=== PATIENT | female | born 1990 | race Caucasian/White ===

== ENCOUNTER → 2017-12-15 01:02 | Outpatient (CLI) | payer MEDICAID, SELFPAY ==
--- NOTE | 2017-12-15 09:45 | DI.REPORT_ITS ---
SYMPTOMS/DIAGNOSIS: DATING, FIRST TRIMESTER , Z34.91 OBSTETRICAL ULTRASOUND: Routine examination. There is a single living intrauterine gestation. Estimated sonographic age is 8 weeks 4 days. The heart rate is 168 bpm. The yolk sac was identified. The ovaries are grossly unremarkable. IMPRESSION: Single living intrauterine gestation. Estimated sonographic age is 8 weeks 4 days. Many abnormalities cannot be diagnosed. A normal exam does not exclude a congenital anomaly. Radiology No. [id number] LMP: 10/24/17 Exam Date: 12/15/17 [facility] wks days on EDC ([facility]) Confirmed: HISTORY: dating, hx of miscarriage with D + C ---- PREDICTED GESTATIONAL AGE NUMBER 7+3 weeks with a range of 6+3 weeks to 8+3 weeks. 1 Determined by___1STUS___LMP___HISTORY Info. pertaining to fetus # PLACENTA PRESENTATION Grade Cephalic___ Anterior___Posterior___ Breech____ Right Left Transverse(head right___ Fundal___Low-lying___Previa___ Transverse(head left___ Varying BIOMETRY AMNIOTIC FLUID BPD: mm weeks Normal HC: mm weeks Oligo Polyhydramnios AC: mm weeks FL: mm weeks AMNIOTIC FLUID INDEX >26 WK CRL: 19.6 mm 8+4 weeks Cisterna Magna: mm CI: RUQ: LUQ Cerebellum: cm EFW: grams Percentile RLQ: LLQ Total: cms Composite AGE= 8+4 wks EDC by US 07/23/18 BIOPHYSICAL PROFILE ANATOMY IDENTIFIED SCORE 0/2 Heart: 4-Chamber___Rate: 168 BPM LVOT: RVOT: Amniotic Fluid(>2cms)____ Stomach: Kidneys: Respirations (>30 secs) Bladder: Post. Fossa: Body Flex/Extension 3 vessel cord: Ventricles: cord insertion: Lips:____ Extremity Flex/Extension spinal morphology: Nose: Total Score= Palate: NS=not seen Comments: Single IUP with + FHR/ movement noted.
== END ==
PROVIDERS: PCP Emergency Medicine; Visit Provider Nurse Practitioner Women's Health
DX: Z34.91 Encounter for supervision of normal pregnancy, unspecified, first trimester (principal)
CPT/HCPCS: 76817

== ENCOUNTER → 2017-12-17 10:16 | Outpatient (CLI) | payer MEDICAID, SELFPAY ==
[2017-12-17 10:48] LABS: Abs Immature Grans 0.04 k/cumm (0.0-0.09); Absolute Basophil Count 0.02 k/cumm (0.0-0.2); Absolute Eosinophil Count 0.09 k/cumm (0.0-0.7); Absolute Lymphocyte Count 1.89 k/cumm (1.2-3.4); Absolute Monocyte Count 0.75 k/cumm (0.11-0.7); Absolute Neutrophil Count 8.18 k/cumm (1.2-6.7); Basophils % 0.2; Eosinophils % 0.8; HCT 42.5 % (36.0-46.0); HGB 14.4 g/dL (12.0-15.5); Immature Grans % 0.4; Lymphocytes % 17.2; Mean Corp. HGB Concentration 33.9 g/dL (32.0-36.0); Mean Corpuscular Hemoglobin 30.3 pg (27.0-33.0); Mean Corpuscular Volume 89.5 fL (80-95); Mean Platelet Volume 10.6 fL (8.0-11.0); Monocytes % 6.8; Neutrophils % 74.6; Platelet Count 336 x1000/uL (130-400); RBC 4.75 m/cumm (4.00-5.20); RBC Distribution Width 13.2 % (11.7-14.6); White Blood Cell Count 10.97 k/cumm (4.4-10.8)
[2017-12-17 12:05] LABS: TSH (W/Ref FT4) 1.26 uIU/mL (0.358-3.74)
[2017-12-18 11:05] LABS: Hepatitis B Surface Ag Negative (NEGAT)
[2017-12-18 11:26] LABS: HIV-1/2 Ag & Ab Screen Negative (NEGAT)
[2017-12-18 11:47] LABS: Hepatitis C Ab w Rflx HCV PCR Negative (NEGAT)
[2017-12-18 13:12] LABS: Syphilis Serology (RPR) Negative (Negative)
[2017-12-18 13:17] LABS: Rubella IgG Ab (UVM) Positive
== END ==
PROVIDERS: PCP Emergency Medicine; Visit Provider Midwife
DX: Z34.91 Encounter for supervision of normal pregnancy, unspecified, first trimester (principal)
CPT/HCPCS: 36415; 80055; 80307; 86850; 86900; 86901; 84443; 87086

== ENCOUNTER → 2017-12-17 12:04 | Outpatient (REF) | payer MEDICAID, SELFPAY ==
[2017-12-17 15:01] LABS: *AMPHETAMINES SCREEN URINE Negative (Negative); *BARBITURATES SCREEN URINE Negative (Negative); *BENZODIAZEPINES SCREEN URINE Negative (Negative); Cannabinoids THC POSITIVE (Negative); Cocaine Screen,Urine Negative (Negative); METHADONE URINE SCREEN Negative (Negative); OPIATES URINE SCREEN Negative (Negative)
[2017-12-17 15:11] LABS: Tricyclic Antidepressants Negative (Negative)
[2017-12-23 11:31] LABS: Buprenorphine Negative; Norbuprenorphine Negative
== END ==
LOC: LBN 12:04
PROVIDERS: PCP Emergency Medicine; Visit Provider Midwife
DX: Z34.91 Encounter for supervision of normal pregnancy, unspecified, first trimester (principal)
CPT/HCPCS: 80307; 87086

== ENCOUNTER 2018-02-19 00:27 | Outpatient (CLI) | payer MEDICAID, SELFPAY ==
--- NOTE | 2018-02-19 14:06 | DI.US_ITS ---
Many abnormalities cannot be diagnosed. A normal exam does not exclude a congenital anomaly. Radiology No. LMP: Exam Date: 02/19/18 [facility] 8 wks 4 days on 12/15/17 EDC ([facility]) Confirmed: HISTORY: SURVEY, Z34.9 ---- PREDICTED GESTATIONAL AGE NUMBER 18 weeks with a range of 17 week to 19 weeks. 1 Determined by__X_1STUS___LMP___HISTORY Info. pertaining to fetus # PLACENTA PRESENTATION Grade 0-1 Cephalic___ Anterior_X__Posterior___ Breech____ Right Left Transverse(head right___ Fundal___Low-lying___Previa___ Transverse(head left___ Varying___X___ BIOMETRY AMNIOTIC FLUID BPD: 43 mm 18.6 weeks Normal HC: 157 mm 18.4 weeks AC: 126 mm 18.2 weeks FL: 26 mm 18 weeks AMNIOTIC FLUID INDEX >26 WK CRL: mm weeks Cisterna Magna: 4 mm CI: 0.85 RUQ: LUQ Cerebellum: 1.8 cm EFW: 228 grams Percentile RLQ: LLQ Total: cms Composite AGE= 18.3 wks EDC by US___07/20/18 BIOPHYSICAL PROFILE ANATOMY IDENTIFIED SCORE 0/2 Heart: 4-Chamber_X__Rate:BPM___153__ LVOT: X__ RVOT: X___ Amniotic Fluid(>2cms)____ Stomach:_X Kidneys:____X___ Respirations (>30 secs) Bladder: X___ Post. Fossa:___X Body Flex/Extension 3 vessel cord:__X Ventricles: X cord insertion:__X___ Lips:___X_ Extremity Flex/Extension spinal morphology: X___Nose:X Total Score= Palate:____X___ NS=not seen Please see the OB ultrasound worksheet for complete details.
== END 2018-02-19 00:47 ==
PROVIDERS: PCP Emergency Medicine; Visit Provider Advanced Practice Midwife
DX: Z34.92 Encounter for supervision of normal pregnancy, unspecified, second trimester (principal)
CPT/HCPCS: 76805

== ENCOUNTER 2018-04-17 08:38 | Outpatient (CLI) | payer MEDICAID, SELFPAY ==
[2018-04-17 09:20] LABS: HCT 37.5 % (36.0-46.0); HGB 12.5 g/dL (12.0-15.5); Mean Corp. HGB Concentration 33.3 g/dL (32.0-36.0); Mean Corpuscular Hemoglobin 31.2 pg (27.0-33.0); Mean Corpuscular Volume 93.5 fL (80-95); Mean Platelet Volume 9.9 fL (8.0-11.0); Platelet Count 308 x1000/uL (130-400); RBC 4.01 m/cumm (4.00-5.20); RBC Distribution Width 13.6 % (11.7-14.6); White Blood Cell Count 14.12 k/cumm (4.4-10.8)
[2018-04-17 09:27] LABS: Glucose,1 Hr (Glucola) 104 mg/dL (80-140)
== END 2018-04-17 08:58 ==
PROVIDERS: Nurse Practitioner; PCP Emergency Medicine; Visit Provider Advanced Practice Midwife
DX: Z34.91 Encounter for supervision of normal pregnancy, unspecified, first trimester (principal); Z01.84 Encounter for antibody response examination
CPT/HCPCS: 36415; 82950; 85027; 86850

== ENCOUNTER 2018-05-25 08:20 | Observation (INO) | payer MEDICAID, SELFPAY ==
[2018-05-25 08:29] VITALS: BP 123/67; PULSE 103; RESP 16; TEMP 36.7; O2SAT 99
--- NOTE | 2018-05-25 08:46 | W.ED.GENAD ---
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 Patient is approximately 32 weeks along her and this morning woke up with blood noted on a pillow that was between her legs. Patient denies any trauma, recent sex, and denies any pain or feelings of contractions but does state that she feels that her stomach has tightened a couple times. Patient denies any knowledge of placenta previa does state an anterior placenta upon placement. heart tones were obtained and show heart rate of approximately 145. Concern for placenta previa/abruption versus early labor so OB automation analyst was contacted. Spoke with Dr. Jurado will be automation analyst whom stated to have patient come to the center for further evaluation workup and vaginal exam. Patient was agreeable to this plan. HPI General Mode of arrival: ambulatory. Date/Time Provider Initiated Documentation: 05/25/18 08:38. Limitations to Documentation: no limitations. Information obtained by: patient, RN notes reviewed and old records reviewed. History of Present Illness 27 year old F presents to the emergency department with the chief complaint of Vaginal bleeding, described as mild, Quality is described as other (Denies pain), Patient started experiencing this hour(s) (2) and it has been constant. No relieving factors improve symptom(s), Patient notes no other symptoms.. Patient did receive the following treatments prior to arrival, none Related Data Home Medications Medication Instructions Recorded Confirmed PNV [id number]-nokce-3-fish oil 1 ea PO DAILY #90 tab.chew 08/15/17 05/25/18 [ Gummies] cholecalciferol (vitamin D3) 4,000 unit PO DAILY #30 tab-cap 08/25/17 05/25/18 [Vitamin D3] sertraline 100 mg PO DAILY #90 tab-cap 11/24/17 05/25/18 breast pump #1 each 05/15/18 05/15/18 Previous Rx's Medication Instructions Recorded PNV [id number]-fkfnz-lehmn-3-fish oil 1 ea PO DAILY #90 tab.chew 08/15/17 [ Gummies] cholecalciferol (vitamin D3) 4,000 unit PO DAILY #30 tab-cap 08/25/17 [Vitamin D3] sertraline 100 mg PO DAILY #90 tab-cap 11/24/17 breast pump #1 each 05/15/18 Allergies Allergy/AdvReac Type Severity Reaction Status Date / Time No Known Drug Allergies Allergy Unverified 05/25/18 08:32 General Stated Complaint: DELIVERER FOOD FRANCOIS: 2 Review of Systems Constitutional Denies chills and Denies fever(s) Cardiovascular Denies chest pain, Denies syncope and Denies dyspnea Respiratory Denies dyspnea Genitourinary Reports as per HPI and Reports abnormal vaginal bleeding Neurologic Denies syncope [facility] Medical History Constipation during Surgical History Dilation and curettage (08/28/17) Family History Mother Age: 47 Alcohol abuse Essential hypertension Anxiety Father Age: 46 Mental disorder Sister Age: 23 Mental disorder Sister Age: 16 No problems noted. 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) Smoking/Tobacco Use Status: Current-Occasional alcohol intake: never substance use type: does not use special emeterio needs: No seatbelt use: always helmet use: Yes drive intox or ride w/ intox compressed air pile driver operator: No water heater temp set < 120 deg: Yes working smoke detector in home: Yes fire extinguisher in home: Yes carbon monox detector in home: Yes firearms in home: Yes victim of physical abuse: No victim of emotional abuse: Yes victim of sexual abuse: No History History 3 Para 1 Hx # Term Pregnancies 1 Multiple births 0 Hx # Pregnancies 0 Ectopic pregnancies 0 AB induced 0 Hx Number of Living Children 1 AB spontaneous 1 Exam Const General: cooperative, comfortable and no acute distress Orientation: alert, awake and oriented x3 Resp Effort & Inspection: normal respiratory effort and able to speak in complete sentences Cardio Rate: regular rate Rhythm: regular rhythm GI Inspection: other (Patient obviously with appropriate heart tones) Palpation: soft and nontender Course Vital Signs Temperature 36.7 C 05/25/18 08:29 Pulse 103 H 05/25/18 08:29 Respiratory Rate 16 05/25/18 08:29 Blood Pressure 123/67 05/25/18 08:29 Pulse Oximetry 99 05/25/18 08:29 Temperature 36.7 C 05/25/18 08:29 Temperature Source Skin 05/25/18 08:29 Pulse 103 H 05/25/18 08:29 Respiratory Rate 16 05/25/18 08:29 Respiratory Effort Non-Labored 05/25/18 08:29 Blood Pressure 123/67 05/25/18 08:29 Blood Pressure Position Sitting 05/25/18 08:29 Pulse Oximetry 99 05/25/18 08:29 Oxygen Delivery Method Room Air 05/25/18 08:29 Oxygen Flow Rate 0 05/25/18 08:29 Pain Level 0 05/25/18 08:29
--- NOTE | 2018-05-25 08:49 | ED.GENADUL_ITS ---
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 Patient is approximately 32 weeks along her and this morning woke up with blood noted on a pillow that was between her legs. Patient denies any trauma, recent sex, and denies any pain or feelings of contractions but does state that she feels that her stomach has tightened a couple times. Patient denies any knowledge of placenta previa does state an anterior placenta upon placement. heart tones were obtained and show heart rate of approximately 145. Concern for placenta previa/abruption versus early labor so OB implementation specialist payroll was contacted. Spoke with Dr. Jurado will be implementation specialist payroll whom stated to have patient come to the center for further evaluation workup and vaginal exam. Patient was agreeable to this plan. HPI General Mode of arrival: ambulatory . Date/Time Provider Initiated Documentation: 05/25/18 08:38 . Limitations to Documentation: no limitations . Information obtained by: patient, RN notes reviewed and old records reviewed . History of Present Illness 27 year old F presents to the emergency department with the chief complaint of Vaginal bleeding, described as mild, Quality is described as other (Denies pain), Patient started experiencing this hour(s) (2) and it has been constant. No relieving factors improve symptom(s), Patient notes no other symptoms.. Patient did receive the following treatments prior to arrival, none Related Data Home Medications Medication Instructions Recorded Confirmed PNV 512-aggwq-wzkid-3-fish oil 1 ea PO DAILY #90 tab.chew 08/15/17 05/25/18 [ Gummies] cholecalciferol (vitamin D3) 4,000 unit PO DAILY #30 tab-cap 08/25/17 05/25/18 [Vitamin D3] sertraline 100 mg PO DAILY #90 tab-cap 11/24/17 05/25/18 breast pump #1 each 05/15/18 05/15/18 Previous Rx's Medication Instructions Recorded PNV [id number]-kltzr-hqfgw-3-fish oil 1 ea PO DAILY #90 tab.chew 08/15/17 [ Gummies] cholecalciferol (vitamin D3) 4,000 unit PO DAILY #30 tab-cap 08/25/17 [Vitamin D3] sertraline 100 mg PO DAILY #90 tab-cap 11/24/17 breast pump #1 each 05/15/18 Allergies Allergy/AdvReac Type Severity Reaction Status Date / Time No Known Drug Allergies Allergy Unverified 05/25/18 08:32 General Stated Complaint: TIMBER 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) Smoking/Tobacco Use Status: Current-Occasional alcohol intake: never substance use type: does not use special emeterio needs: No seatbelt use: always helmet use: Yes drive intox or ride w/ intox driver education road instructor: No water heater temp set < 120 deg: Yes working smoke detector in home: Yes fire extinguisher in home: Yes carbon monox detector in home: Yes firearms in home: Yes victim of physical abuse: No victim of emotional abuse: Yes victim of sexual abuse: No History History 3 Para 1 Hx # Term Pregnancies 1 Multiple births 0 Hx # Pregnancies 0 Ectopic pregnancies 0 AB induced 0 Hx Number of Living Children 1 AB spontaneous 1 Exam Const General: cooperative, comfortable and no acute distress Orientation: alert, awake and oriented x3 Resp Effort & Inspection: normal respiratory effort and able to speak in complete sentences Cardio Rate: regular rate Rhythm: regular rhythm GI Inspection: other (Patient obviously with appropriate heart tones) Palpation: soft and nontender Course Vital Signs Temperature 36.7 C 05/25/18 08:29 Pulse 103 H 05/25/18 08:29 Respiratory Rate 16 05/25/18 08:29 Blood Pressure 123/67 05/25/18 08:29 Pulse Oximetry 99 05/25/18 08:29 Temperature 36.7 C 05/25/18 08:29 Temperature Source Skin 05/25/18 08:29 Pulse 103 H 05/25/18 08:29 Respiratory Rate 16 05/25/18 08:29 Respiratory Effort Non-Labored 05/25/18 08:29 Blood Pressure 123/67 05/25/18 08:29 Blood Pressure Position Sitting 05/25/18 08:29 Pulse Oximetry 99 05/25/18 08:29 Oxygen Delivery Method Room Air 05/25/18 08:29 Oxygen Flow Rate 0 05/25/18 08:29 Pain Level 0 05/25/18 08:29
--- NOTE | 2018-05-25 11:30 | DI.US_ITS ---
SYMPTOM/DIAGNOSIS: RULE OUT PLACENTAL ABRUPTION OB ULTRASOUND: The exam was performed to evaluate the placenta. The placenta is anterior. At the inferior left side of the placenta there is an area of thickening adjacent to the uterine wall and border of the placenta which could represent hemorrhage related to abruption. The fetus was not evaluated for motion and cardiac activity were noted. Amount of amniotic fluid appears normal. IMPRESSION: Question of a small amount of hemorrhage at the inferior border of the placenta which could indicate abruption. Many abnormalities cannot be diagnosed. A normal exam does not exclude a congenital anomaly. Radiology No. [id number] LMP: Exam Date:05/25/18 [facility] wks days on EDC ([facility]) Confirmed: HISTORY: R/O PLACENTAL ABRUPTION, VAG BLEEDING AT 31+ WEEKS. PREDICTED GESTATIONAL AGE NUMBER weeks with a range of week to weeks. 1 Determined by___1STUS___LMP___HISTORY Info. pertaining to fetus # PLACENTA PRESENTATION Grade I-II Cephalic___ Anterior__XX_Posterior___ Breech____ Right Left Transverse(head right___ Fundal___Low-lying___Previa___ Transverse(head left___ Varying BIOMETRY AMNIOTIC FLUID BPD: mm weeks Normal HC: mm weeks Oligo Polyhydramnios AC: mm weeks FL: mm weeks AMNIOTIC FLUID INDEX >26 WK CRL: mm weeks Cisterna Magna: mm CI: RUQ: LUQ Cerebellum: cm EFW: grams Percentile RLQ: LLQ Total: cms Composite AGE= wks EDC by US BIOPHYSICAL PROFILE ANATOMY IDENTIFIED SCORE 0/2 Heart: 4-Chamber___Rate:BPM LVOT: RVOT: Amniotic Fluid(>2cms)____ Stomach: Kidneys: Respirations (>30 secs) Bladder: Post. Fossa: Body Flex/Extension 3 vessel cord: Ventricles: cord insertion: Lips:____ Extremity Flex/Extension spinal morphology: Nose: Total Score= Palate: NS=not seen
[2018-05-25] MEDS: Lactated Ringers 1,000 ML 150 ML IV (11:37)
[2018-05-25] MEDS: MAGNESIUM SULFATE 20 GM/500 ML BAG IV (11:38)
[2018-05-25] MEDS: Betamet Acet/Betamet Na Ph Inj. 30 MG/5 ML 12 MG IM (11:56)
--- NOTE | 2018-05-25 12:00 | HPE_ITS ---
Assessment and Plan (1) Placental abruption in third trimester: Current visit: Yes Status: Acute 31.4 weeks with suspected placental abruption. An ultrasound did show findings appearing to confirm this. My recommendation to the patient is to proceed with transfer to [facility] to [facility] service. I did speak with Dr. Prema Ruvalcaba who did accept her in transfer. The patient is started on a Magnesium sulfate infusion with a 2 gm bolus for neuroprotection and is administered the first betamethasone. I discussed my concerns with the patient regarding risks to the . All questions were answered. 27 year old @ 31.4 weeks gestation with an JAYANT of 07/23/18 based on an 8 week US presents today with vaginal bleeding. She reports some mild abdominal cramping but is uncertain if she is having contractions. She reports good movement. Her has been uncomplicated to this point. Her obstetrical history is significant for one prior section. Review of Systems Review of Systems All systems reviewed & are unremarkable except as noted in HPI and below PFSH Medical History Constipation during Surgical History Dilation and curettage (08/28/17) Family History Mother Age: 47 Alcohol abuse Essential hypertension Anxiety Father Age: 46 Mental disorder Sister Age: 23 Mental disorder Sister Age: 16 No problems noted. 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) Smoking/Tobacco Use Status: Current-Occasional alcohol intake: never substance use type: does not use special emeterio needs: No seatbelt use: always helmet use: Yes drive intox or ride w/ intox limousine driver: No water heater temp set < 120 deg: Yes working smoke detector in home: Yes fire extinguisher in home: Yes carbon monox detector in home: Yes firearms in home: Yes victim of physical abuse: No victim of emotional abuse: Yes victim of sexual abuse: No History History 3 Para 1 Hx # Term Pregnancies 1 Multiple births 0 Hx # Pregnancies 0 Ectopic pregnancies 0 AB induced 0 Hx Number of Living Children 1 AB spontaneous 1 Meds Home Medications Medication Instructions Recorded Confirmed Type PNV 780-wfsrj-xgjje-3-fish oil 1 ea PO DAILY #90 tab.chew 08/15/17 05/25/18 Rx [ Gummies] cholecalciferol (vitamin D3) 4,000 unit PO DAILY #30 tab-cap 08/25/17 05/25/18 Rx [Vitamin D3] sertraline 100 mg PO DAILY #90 tab-cap 11/24/17 05/25/18 Rx breast pump #1 each 05/15/18 05/15/18 Rx Allergies Allergy/AdvReac Type Severity Reaction Status Date / Time No Known Drug Allergies Allergy Unverified 05/25/18 08:32 Exam GI Other: Abdomen is soft, gravid, nontender. Contractions not palpable. Other: Moderate old blood in the vaginal vault with no active bleeding. Cervix is closed. Results Last Vital Signs Temp 98.1 F 05/25/18 08:29 Pulse 103 H 05/25/18 08:29 Resp 16 05/25/18 08:29 BP 123/67 05/25/18 08:29 Pulse Ox 99 05/25/18 08:29
== END 2018-05-25 13:30 | disposition home or self-care (01) ==
LOC: ER 09:23 → OBS 09:45
PROVIDERS: Admitting Provider Obstetrics & Gynecology; Emergency Provider Nurse Practitioner Family; PCP Emergency Medicine; Visit Provider Obstetrics & Gynecology
DX: O46.8X3 Other antepartum hemorrhage, third trimester (principal); Z3A.31 31 weeks gestation of pregnancy; O34.211 Maternal care for low transverse scar from previous cesarean delivery; O99.333 Smoking (tobacco) complicating pregnancy, third trimester; Z72.0 Tobacco use
CPT/HCPCS: 36415; 76815; 99223; 99285; 99284; G0378; J0702; J3475

== ENCOUNTER 2021-05-17 11:07 | Outpatient (CLI) | payer MEDICAID, SELFPAY ==
--- NOTE | 2021-05-17 11:00 | RT.EKG_ITS ---
APPROVED REPORT Exam: Resting ECG Reason for Exam: Chest discomfort Patient Location: O HR:72 bpm ECG Measurements Heart Rate 72 AXIS OR 134 P 52 QRSd 88 QRS 44 QT 371 T 13 QTc 406 Conclusion Sinus rhythm...normal P axis, V-rate 60- 99 Normal Electrocardiogram
== END 2021-05-17 11:08 | disposition home or self-care (01) ==
LOC: DI.CM 11:07
PROVIDERS: PCP Family Medicine; Visit Provider Nurse Practitioner Family
DX: R07.89 Other chest pain (principal)
CPT/HCPCS: 93010

== ENCOUNTER 2021-05-18 14:08 | Outpatient (REF) | payer MEDICAID, SELFPAY ==
[2021-05-18 18:58] LABS: D-Dimer 157 ng/mlFEU (<500)
== END 2021-05-18 14:09 | disposition home or self-care (01) ==
LOC: LBN 14:08
PROVIDERS: PCP Family Medicine; Visit Provider Nurse Practitioner Family
DX: R07.89 Other chest pain (principal)
CPT/HCPCS: 85379

== ENCOUNTER 2021-07-31 11:14 | Outpatient (REF) | payer MEDICAID, SELFPAY ==
--- NOTE | 2021-07-31 10:30 | PAPFT_PTH ---
PATIENT: Rosa Rodriguez LOC: [facility] U#:[id number] AGE/SX: 30/F ROOM: RE07/31/[address]: KRISTI Kelly : 1990 BED: DIS: 07/31/2021 SPEC #: [id number] RECD: 07/31/21 12:54 STATUS: CORDELL REAndrei #: [id number] HUNG: 07/31/21 10:[address]: Rosa Palmer [facility]PT[facility] Cytology RECD BY: Radha Washington ENTERED: 07/31/21 12:55 SP TYPE: PAPFT SEVERO DR: Hayden Hall, ANUJA Tissues: 1 - CX/ENDOCX FOR PAP SMEARS Procedures: PAP THIN PREP/[facility] Screening Comments: [id number]
== END 2021-07-31 11:15 | disposition home or self-care (01) ==
LOC: LBN 11:14
PROVIDERS: PCP Nurse Practitioner Family; Visit Provider Nurse Practitioner Family
DX: Z12.4 Encounter for screening for malignant neoplasm of cervix (principal)
CPT/HCPCS: 88142

== ENCOUNTER 2022-02-19 12:43 | Emergency (ER) | payer MEDICAID, SELFPAY ==
--- NOTE | 2022-02-19 12:45 | RT.EKG_ITS ---
APPROVED REPORT Exam: Resting ECG Reason for Exam: chest pain Patient Location: E HR:89 bpm ECG Measurements Heart Rate 89 AXIS FL 127 P 55 QRSd 76 QRS 57 QT 349 T 53 QTc 424 Conclusion Sinus rhythm...normal P axis, V-rate 60- 99
[2022-02-19 12:49] VITALS: BP 121/67; PULSE 86; RESP 16; TEMP 36.9; O2SAT 98
[2022-02-19 12:52] VITALS: RESP 16
[2022-02-19 14:40] LABS: Abs Immature Grans 0.01 10^3/uL (0.0-0.06); Absolute Basophil Count 0.02 10^3/uL (0.0-0.2); Absolute Eosinophil Count 0.03 10^3/uL (0.0-0.7); Absolute Monocyte Count 0.77 10^3/uL (0.1-0.8); Absolute Neutrophil Count 2.33 10^3/uL (1.2-6.7); Basophils % 0.4; Eosinophils % 0.6; HCT 47.9 % (36.0-46.0); HGB 15.9 g/dL (11.2-15.7); Immature Grans % 0.2; Lymphocytes % 38.8; MCH 30.5 pg (27.0-33.0); MCHC 33.2 % (32.0-36.0); MCV 92 fL (80-95); MPV 10.6 fL (8.0-11.0); Monocytes % 14.9; Neutrophils % 45.1; Platelet Count 271 10^3/uL (130-400); RBC 5.22 10^6/uL (3.93-5.22); RDW-SD 43.9 fL; WBC 5.16 10^3/uL (4.4-10.8)
[2022-02-19 14:56] LABS: Bilirubin Negative (Negative); Blood Trace-intact (Negative); Clarity Clear (Clear); Glucose Negative (Negative); Ketones Negative (Negative); Leukocyte Esterase Trace (Negative); Nitrite Negative (Negative); Specific Gravity >= 1.030 (1.005-1.025); Urobilinogen 0.2 EU/dL (Up TO 0.2)
[2022-02-19 14:59] LABS: ALT 50 U/L (14-59); AST 31 U/L (15-37); Albumin 4.7 g/dL (3.4-5.0); Alkaline Phosphatase 60 U/L (46-116); Anion Gap 8.3 mmol/L (3-11); BUN 12 mg/dL (7-18); Bilirubin, Total 0.3 mg/dL (0.2-1.0); CO2 26.7 mmol/L (21.0-32.0); CREATININE 0.9 mg/dL (0.55-1.02); Chloride 103 mmol/L (98-107); Glucose 82 mg/dL (74-106); Potassium 4.1 mmol/L (3.5-5.1); Sodium 138 mmol/L (136-145); Troponin I < 50 ng/L (<or=60)
[2022-02-19 15:10] LABS: Bacteria Few HPF (Negative); Epithelial Cells Few HPF (Negative); RBC 0-2 HPF (0-2)
[2022-02-19 15:11] LABS: C & S Indicated? No; Crystals Few Amorphous HPF (Negative); Mucus Moderate (Negative)
--- NOTE | 2022-02-19 15:15 | DI.RAD_ITS ---
Exam(s) XR PORTABLE CHEST AP EXAM: XR PORTABLE CHEST AP CLINICAL HISTORY: chest pain, covid. TECHNIQUE: 2D digital imaging was performed. COMPARISON: No exams were available for comparison FINDINGS: Single AP portable view. Heart size is upper normal. The mediastinum is not widened. Lungs are clear. No infiltrates nor obvious pleural effusions. IMPRESSION: No acute pulmonary findings on this single AP portable view of the chest. DATA REPOSITORY: RADIATION DOSE DELIVERED:
[2022-02-19 15:19] LABS: D-Dimer 441 ng/mlFEU (<500)
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
[2022-02-19 16:47] VITALS: BP 120/60; PULSE 78; RESP 14; O2SAT 98
== END 2022-02-19 16:52 | disposition home or self-care (01) ==
PROVIDERS: Emergency Provider Physician Assistant; PCP Nurse Practitioner Family
DX: R07.89 Other chest pain (principal); Z86.16 Personal history of COVID-19; Z32.02 Encounter for pregnancy test, result negative
CPT/HCPCS: 36415; 80053; 81025; 93005; 99284; 71045; 81003; 81015; 83735; 84484; 85025; 85379; 93010; 99283

== ENCOUNTER 2022-10-16 11:38 | Outpatient (REF) | payer MEDICAID, SELFPAY | END 2022-10-16 11:39 | disposition home or self-care (01) | LOC: LBN 11:38 | PROVIDERS: PCP Nurse Practitioner Family; Visit Provider Nurse Practitioner Family | DX: J02.9 Acute pharyngitis, unspecified (principal) | CPT/HCPCS: 87070 ==

== ENCOUNTER 2022-10-18 09:49 | Emergency (ER) | payer MEDICAID, SELFPAY ==
[2022-10-18 10:02] VITALS: BP 119/68; PULSE 82; RESP 18; TEMP 36.8; O2SAT 100
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
[2022-10-18 11:20] VITALS: BP 124/80; PULSE 85; RESP 18; TEMP 36.8; O2SAT 99
== END 2022-10-18 11:24 | disposition home or self-care (01) ==
PROVIDERS: Emergency Provider Physician Assistant; PCP Nurse Practitioner Family
DX: J03.90 Acute tonsillitis, unspecified (principal)
CPT/HCPCS: 87880; 99283; 87081; 99284

== ENCOUNTER 2024-01-27 03:08 | Outpatient (CLI) | payer MEDICAID, SELFPAY ==
[2024-01-27 14:35] LABS: Hemoglobin A1C 5.1 % (<5.7)
[2024-01-27 14:45] LABS: Cholesterol 232 mg/dL (<200); HDL Cholesterol 28 mg/dL (40-60); TSH (W/Ref FT4) 2.27 uIU/mL (0.36-3.74); Triglyceride 566 mg/dL (<150)
[2024-01-27 15:04] LABS: LDL CHOLESTEROL 134 mg/dL (<100)
== END 2024-01-27 03:09 | disposition home or self-care (01) ==
LOC: LBO 03:08
PROVIDERS: PCP Nurse Practitioner Family; Visit Provider Nurse Practitioner Family
DX: Z13.29 Encounter for screening for other suspected endocrine disorder (principal); E78.5 Hyperlipidemia, unspecified; Z13.1 Encounter for screening for diabetes mellitus
CPT/HCPCS: 36415; 80061; 83721; 83036; 84443

== ENCOUNTER 2024-02-12 03:57 | Outpatient (CLI) | payer MEDICAID, SELFPAY ==
[2024-02-12 09:19] LABS: HCT 42.9 % (36.0-46.0); HGB 14.3 g/dL (11.2-15.7); MCH 30.6 pg (27.0-33.0); MCHC 33.3 % (32.0-36.0); MCV 92 fL (80-95); MPV 10.3 fL (8.0-11.0); Platelet Count 342 10^3/uL (130-400); RBC 4.68 10^6/uL (3.93-5.22); RDW 12.5 % (11.7-14.6); RDW-SD 42.1 fL; WBC 8.16 10^3/uL (4.4-10.8)
[2024-02-12 10:23] LABS: Cholesterol 242 mg/dL (<200); HDL Cholesterol 34 mg/dL (40-60); TSH (W/Ref FT4) 1.83 uIU/mL (0.36-3.74); Triglyceride 521 mg/dL (<150)
[2024-02-12 10:36] LABS: LDL CHOLESTEROL 124 mg/dL (<100)
== END 2024-02-12 03:58 | disposition home or self-care (01) ==
LOC: LBO 03:58
PROVIDERS: PCP Nurse Practitioner Family; Visit Provider Nurse Practitioner Family
DX: R53.83 Other fatigue (principal); Z13.220 Encounter for screening for lipoid disorders
CPT/HCPCS: 36415; 80061; 83721; 85027; 84443

== ENCOUNTER 2024-02-24 09:36 | Outpatient (REF) | payer MEDICAID, SELFPAY ==
--- NOTE | 2024-02-24 09:15 | PAPFT_PTH ---
PATIENT: Rosa Rodriguez LOC: [facility] U#:[id number] AGE/SX: 33/F ROOM: RE02/24/[address]: Danna Neves NP : 1990 BED: DIS: 02/24/2024 SPEC #: [id number] RECD: 02/24/24 13:18 STATUS: CORDELL JUDD #: [id number] HUNG: 02/24/24 09:[address]: Danna Neves NP [facility] Cytology RECD BY: Radha Washington ENTERED: 02/24/24 13:18 SP TYPE: PAPFT OTHR DR: Hayden Hall NP Tissues: 1 - CX/ENDOCX FOR PAP SMEARS Procedures: PAP THIN PREP/[facility] Screening HPV DNA PROBE Comments: [id number] (HPV 16 & 18/45)
== END 2024-02-24 09:37 | disposition home or self-care (01) ==
LOC: LBN 09:36
PROVIDERS: PCP Nurse Practitioner Family; Visit Provider Nurse Practitioner Women's Health
DX: R10.2 Pelvic and perineal pain (principal); Z01.419 Encounter for gynecological examination (general) (routine) without abnormal findings; Z12.4 Encounter for screening for malignant neoplasm of cervix
CPT/HCPCS: 88142; 87624

== ENCOUNTER 2024-03-02 11:01 | Outpatient (CLI) | payer MEDICAID, SELFPAY ==
--- NOTE | 2024-03-02 08:30 | DI.US_ITS ---
Exam(s) US PELVIS TRANSVAGINAL EXAM: US PELVIS TRANSVAGINAL CLINICAL HISTORY: pelvic pain, L sided, R10.2 TECHNIQUE: Transabdominal and transvaginal imaging was performed using standard protocol. COMPARISON: US PELVIS TRANSVAG from 09/20/2016 FINDINGS: UTERUS: Retroverted. 7.1 x 5.0 x 5.2 cm Endometrium: 12 mm mildly heterogeneous. Focal 2 millimeter calcification. Myometrium: Mildly heterogeneous. No discrete fibroid. Cervix: Unremarkable. OVARIES: Right: Cyst or mass: None. Left: Cyst or mass: None. DOPPLER: Color: Symmetric and uniform flow to both ovaries. No hyperemia. CUL-DE-SAC: Free fluid: Trace IMPRESSION: 1. Heterogeneous myometrium without discrete fibroid. Endometrium appears mildly heterogeneous and c ontains a 2 millimeter calcification. 2. Unremarkable bilateral ovaries. DATA REPOSITORY:
== END 2024-03-02 11:21 ==
LOC: DI 11:01
PROVIDERS: PCP Nurse Practitioner Family; Visit Provider Nurse Practitioner Women's Health
DX: R10.2 Pelvic and perineal pain (principal); N85.2 Hypertrophy of uterus
CPT/HCPCS: 76830; 76856

== ENCOUNTER 2024-03-17 15:31 | Outpatient (CLI) | payer MEDICAID, SELFPAY ==
--- NOTE | 2024-03-17 14:28 | DI.RAD_ITS ---
Exam(s) XR CHEST 2V PA LATERAL EXAM: XR CHEST 2V PA LATERAL CLINICAL HISTORY: eval pna COUGH R05.9 TECHNIQUE: 2D digital imaging was performed of the chest. Two images were obtained. PA and lateral views were obtained. COMPARISON: CR XR PORTABLE CHEST AP from 02/19/2022 FINDINGS: MEDIASTINUM: Normal. HEART: Normal. PULMONARY VASCULATURE: Normal. LUNGS: Clear. PLEURAL SPACE: No pleural effusion or pneumothorax. BONE:Within normal limits for the patient's age. OTHER FINDINGS:Normal. IMPRESSION: No acute pulmonary findings. DATA REPOSITORY: RADIATION DOSE DELIVERED:
== END 2024-03-17 15:51 ==
LOC: DI 15:32
PROVIDERS: PCP Nurse Practitioner Family; Visit Provider Nurse Practitioner Family
DX: R05.9 Cough, unspecified (principal)
CPT/HCPCS: 71046

== ENCOUNTER 2024-04-01 07:44 | Outpatient (CLI) | payer MEDICAID, SELFPAY ==
[2024-04-01 08:56] LABS: Calculated LDL 118 mg/dL (<100); Cholesterol 219 mg/dL (<200); HDL Cholesterol 35 mg/dL (40-60); Triglyceride 330 mg/dL (<150)
== END 2024-04-01 07:45 | disposition home or self-care (01) ==
LOC: LBO 07:44
PROVIDERS: PCP Nurse Practitioner Family; Visit Provider Nurse Practitioner Family
DX: Z13.220 Encounter for screening for lipoid disorders (principal)
CPT/HCPCS: 36415; 80061

== ENCOUNTER 2025-02-12 15:45 | Emergency (ER) | payer MEDICAID, SELFPAY ==
[2025-02-12] VITALS (24 sets, daily range): BP systolic 110–138; BP diastolic 68–78; PULSE 65–86; RESP 13–22; TEMP 36.8; O2SAT 95–100
--- NOTE | 2025-02-12 15:45 | RT.EKG_ITS ---
APPROVED REPORT Exam: Resting ECG Reason for Exam: CHEST PAIN Patient Location: E HR:73 bpm ECG Measurements Heart Rate 73 AXIS SC 135 P 45 QRSd 86 QRS 50 QT 381 T 31 QTc 422 Conclusion Sinus rhythm...normal P axis, V-rate 60- 99 no evidence of STEMI. No significant ST elevation or depression. No S1Q3T3.
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
[2025-02-12 16:36] LABS: Abs Immature Grans 0.02 10^3/uL (0.0-0.06); HCT 42.7 % (36.0-46.0); HGB 14.5 g/dL (11.2-15.7); Immature Grans % 0.2 %; MCH 30.1 pg (27.0-33.0); MCHC 34.0 % (32.0-36.0); MCV 89 fL (80-95); MPV 10.1 fL (8.0-11.0); Platelet Count 332 10^3/uL (130-400); RBC 4.82 10^6/uL (3.93-5.22); RDW 12.0 % (11.7-14.6); RDW-SD 39.1 fL; WBC 8.42 10^3/uL (4.4-10.8)
--- NOTE | 2025-02-12 16:46 | DI.RAD_ITS ---
Exam(s) XR CHEST 2V PA LATERAL EXAM: XR CHEST 2V PA LATERAL CLINICAL HISTORY: chest pain, left chest TECHNIQUE: 2D digital imaging was performed of the chest. Two images were obtained. PA and lateral views were obtained. COMPARISON: CR XR PORTABLE CHEST AP from 02/19/2022 CR XR CHEST 2V PA LATERAL from 03/17/2024 FINDINGS: MEDIASTINUM: Normal. HEART: Normal. PULMONARY VASCULATURE: Normal. LUNGS: Clear. PLEURAL SPACE: No pleural effusion or pneumothorax. BONE:Within normal limits for the patient's age. OTHER FINDINGS:Normal. IMPRESSION: 1. No acute pulmonary findings. 2. The preliminary [facility] report was reviewed. DATA REPOSITORY: RADIATION DOSE DELIVERED:
[2025-02-12 17:01] LABS: ALT 45 U/L (14-59); AST 24 U/L (15-37); Albumin 4.4 g/dL (3.4-5.0); Alkaline Phosphatase 67 U/L (46-116); Anion Gap 11.2 mmol/L (3-11); BUN 9 mg/dL (7-18); Bilirubin, Total 0.4 mg/dL (0.2-1.0); CO2 25.8 mmol/L (21.0-32.0); Calcium 9.1 mg/dL (8.5-10.1); Chloride 105 mmol/L (98-107); Estimated GFR 86.57 (mL/min/1.73m2); Glucose 113 mg/dL (74-106); NT-proBNP 41 pg/mL (<300); Potassium 3.5 mmol/L (3.5-5.1); Sodium 142 mmol/L (136-145); TSH (W/Ref FT4) 2.84 uIU/mL (0.36-3.74); Total Protein 8.3 g/dL (6.4-8.2)
[2025-02-12 17:03] LABS: Troponin I < 4 ng/L (<or=51)
[2025-02-12] MEDS: Lactated Ringers 1,000 ML 1000 ML IV (17:03)
[2025-02-12 17:04] LABS: D-Dimer 297 ng/mlFEU (<500)
--- NOTE | 2025-02-12 17:13 | DI.[facility]_ITS ---
PROCEDURE INFORMATION: Exam: XR Chest Exam date and time: 02/12/2025 4:49 PM Age: 34 years old Clinical indication: Left-sided and other: Chest pain, left chest TECHNIQUE: Imaging protocol: Radiologic exam of the chest. Views: 2 views. COMPARISON: CR XR CHEST 2V PA LATERAL 03/17/2024 2:18 PM FINDINGS: Lungs: Unremarkable. No consolidation. Pleural spaces: Unremarkable. No pleural effusion. No pneumothorax. Heart/Mediastinum: Unremarkable. No cardiomegaly. Bones/joints: Unremarkable. IMPRESSION: No evidence for acute abnormality in the chest. Dictated and Authenticated by: Ledy Sandy MD. Orderin Lasha Ceron MD
[2025-02-12 17:16] LABS: COVID-19 PCR Negative (Negative); RSV PCR Negative (Negative)
[2025-02-12 17:46] LABS: Glucose Negative (Negative)
[2025-02-12 17:54] LABS: C & S Indicated? No; RBC 0-2 HPF (0-2); WBC Negative HPF (0-5)
[2025-02-12 18:08] LABS: Troponin I < 4 ng/L (<or=51)
== END 2025-02-12 18:38 | disposition home or self-care (01) ==
PROVIDERS: Emergency Provider Student in an Organized Health Care Education/Training Program; PCP Nurse Practitioner Family
DX: R07.9 Chest pain, unspecified (principal); E78.1 Pure hyperglyceridemia; F17.290 Nicotine dependence, other tobacco product, uncomplicated
CPT/HCPCS: 80053; 81025; 87637; 93005; 93308; 96365; 96375; 99284; 71046; 81003; 81015; 83880; 84443; 84484; 85025; 85379; 93010